=== PATIENT | female | born 1990 | race Caucasian/White ===

== ENCOUNTER 2016-11-06 12:09 | Outpatient (CLI) | payer MEDICAID | END 2016-11-06 12:10 | disposition home or self-care (01) | DX: Z36 Encounter for antenatal screening of mother (principal) ==

== ENCOUNTER 2016-12-10 11:43 | Outpatient (CLI) | payer MEDICAID | END 2016-12-10 11:44 | disposition home or self-care (01) | DX: Z36 Encounter for antenatal screening of mother (principal) ==